=== PATIENT | male | born 1960 | race Caucasian/White ===

== ENCOUNTER 2021-04-06 12:23 | Emergency (ER) | payer BC, OTHER, SELFPAY ==
[2021-04-06 12:34] VITALS: BP 159/98; PULSE 73; RESP 16; TEMP 37.2; O2SAT 98
--- NOTE | 2021-04-06 13:56 | ED.EPISTAXIS ---
HPI - Epistaxis General Chief complaint: Epistaxis Stated complaint: blood nose Time Seen by Provider: 04/06/21 13:33 Source: patient and RN notes reviewed Mode of arrival: ambulatory Limitations: no limitations History of Present Illness HPI Narrative: Patient presents today complaining of left-sided epistaxis since 11:00 this morning. He does take an aspirin daily but is on no other blood thinners. He did have a headache this morning and took an Excedrin as well. States he does get nosebleeds frequently in the winter, but they typically stop on their own. MD complaint: epistaxis Related Data Home Medications Medication Instructions Recorded Confirmed amlodipine 10 mg PO DAILY 04/06/21 04/06/21 ascorbic acid (vitamin C) 250 mg PO BID 04/06/21 04/06/21 aspirin [Adult Low Dose Aspirin] 81 mg PO DAILY 04/06/21 04/06/21 atorvastatin 20 mg PO DAILY 04/06/21 04/06/21 cyanocobalamin (vitamin B-12) 5,000 mcg SUBLINGUAL DAILY 04/06/21 04/06/21 [Vitamin B-12] gemfibrozil 600 mg PO BID 04/06/21 04/06/21 hydralazine 100 mg PO DAILY 04/06/21 04/06/21 omega-3 fatty acids-vitamin E 1 cap PO BID 04/06/21 04/06/21 [Fish Oil] Allergies Allergy/AdvReac Type Severity Reaction Status Date / Time No Known Allergies Allergy Verified 04/06/21 12:48 Review of Systems Review of Systems: CONSTITUTIONAL: Denies body aches, fever, chills, or sweats. EYES: Denies visual changes, redness, or discharge. ENT: Denies rhinorrhea, congestion, sore throat, or otalgia.+ Epistaxis CARDIOVASCULAR: Denies chest pain, palpitations, or edema. RESPIRATORY: Denies cough or dyspnea. GASTROINTESTINAL: Denies abdominal pain, nausea, vomiting, or diarrhea. GENITOURINARY: Denies dysuria or hematuria. SKIN: Denies rash, itching, or wounds. MUSCULOSKELETAL: Denies back pain, joint pain, or myalgia. NEUROLOGIC: Denies headache, numbness, tingling, or weakness. PSYCH: Denies depression or anxiety. [facility] Past Medical History Medical History (Updated 04/07/21 @ 08:19 by Tangela Ingram, LEAD SOFTWARE ENGINE[employer], ) Hypertension Comments At time of signature, I have reviewed and agree with nursing past medical, surgical, social and family history unless otherwise noted. Please see nursing chart for further information. There is no relevant family history pertinent to the presenting complaint Exam Narrative: GENERAL: Well-appearing, well-nourished, and in no acute distress. HEAD: Normocephalic, atraumatic. EYES: EOMI. No redness or drainage. Conjunctivae normal. ENT: Mucous membranes pink and moist. Nares clear. No rhinorrhea. Throat normal. Uvula midline. Left-sided epistaxis that is steady. No anterior source identified. Patient has a large clot in the throat that he was able to cough up. Nasal clamp for ~1 hour has not helped achieve hemostasis prior to exam. NECK: Normal AROM. CHEST: No respiratory distress. EXTREMITIES: Normal range of motion. No edema. SKIN: Warm, dry, no rash. Capillary refill normal. Normal skin turgor. NEURO: No focal deficits. Alert and oriented x3. Gait steady. PSYCH: Normal affect. No signs of depression or anxiety. Course Vital Signs Vital signs: Vital Signs Temperature 99 F 04/06/21 12:34 Pulse Rate 73 04/06/21 12:34 Respiratory Rate 16 04/06/21 12:34 Blood Pressure 159/98 H 04/06/21 12:34 Pulse Oximetry 98 04/06/21 12:34 Temperature 99 F 04/06/21 12:34 Pulse Rate 73 04/06/21 12:34 Respiratory Rate 16 04/06/21 12:34 Blood Pressure 159/98 H 04/06/21 12:34 Pulse Oximetry 98 04/06/21 12:34 Reviewed. Pt has been instructed to follow up with his PCP regarding his elevated blood pressure today. Procedures Epistaxis Control left: Epistaxis Control Date: 04/06/21 Epistaxis Control Time: 13:57 Time Out Performed: No Clots Removed by: blowing nose (coughing) Cautery Used: none Device Inserted: hemostatic balloon (Rapid rhino) Patient Tolerated
== END 2021-04-06 14:35 | disposition home or self-care (01) ==
PROVIDERS: Emergency Provider Nurse Practitioner; PCP Internal Medicine
DX: R04.0 Epistaxis (principal)
CPT/HCPCS: 30905; 99213; G0463

== ENCOUNTER 2021-04-08 08:15 | Emergency (ER) | payer BC, OTHER, SELFPAY ==
[2021-04-08 08:20] VITALS: BP 140/92; PULSE 66; RESP 20; TEMP 36.7; O2SAT 100
--- NOTE | 2021-04-08 08:38 | ED.GENADULT ---
HPI - General Adult General Chief complaint: Unspecified Stated complaint: Nose balloon removal. Time Seen by Provider: 04/08/21 08:37 Source: patient and RN notes reviewed Mode of arrival: ambulatory Limitations: no limitations History of Present Illness HPI narrative: 60-year-old male presents for removal of a rapid Rhino that he had placed here on Thursday. Reports on Thursday he had a nosebleed in the left nostril, held pressure for 1 hour and it was not stopping. Reports he presented and had a rapid Rhino placed and was placed on antibiotics. He denies any problems or concerns, denies any bleeding after the rapid Rhino was placed. MD complaint: Rapid Rhino removal Related Data Home Medications Medication Instructions Recorded Confirmed amlodipine 10 mg PO DAILY 04/06/21 04/06/21 ascorbic acid (vitamin C) 250 mg PO BID 04/06/21 04/06/21 aspirin [Adult Low Dose Aspirin] 81 mg PO DAILY 04/06/21 04/06/21 atorvastatin 20 mg PO DAILY 04/06/21 04/06/21 cyanocobalamin (vitamin B-12) 5,000 mcg SUBLINGUAL DAILY 04/06/21 04/06/21 [Vitamin B-12] gemfibrozil 600 mg PO BID 04/06/21 04/06/21 hydralazine 100 mg PO DAILY 04/06/21 04/06/21 omega-3 fatty acids-vitamin E 1 cap PO BID 04/06/21 04/06/21 [Fish Oil] Allergies Allergy/AdvReac Type Severity Reaction Status Date / Time No Known Allergies Allergy Verified 04/06/21 12:48 Review of Systems Review of Systems: CONSTITUTIONAL: Denies malaise, chills, sweats, or fever. ENT: Denies epistaxis NEUROLOGIC: Denies headache. All systems reviewed & are unremarkable except as noted in HPI and below PMFSH Past Medical History Medical History (Updated 04/08/21 @ 08:46 by Palmira Ramirez NP) Hypertension Comments At time of signature, agree with nursing past medical, surgical, social and family history. There is no relevant family history pertinent to the presenting complaint Exam Narrative: GENERAL: Well-appearing, well-nourished, and in no acute distress. HEAD: Normocephalic, atraumatic. EYES: PERRLA, sclera clear ENT: Right nares clear, rapid Rhino intact in the left nostril, no epistaxis noted. Mucous membranes moist. Oropharynx without erythema or lesions. No posterior bleeding noted NECK: Supple. CHEST: No respiratory distress. Speaks in full sentences. HEART: Regular rate and rhythm. SKIN: Warm, dry, no visible rash. NEURO: Alert and oriented x3. PSYCH: Normal mood and affect Course Course Emergency Course: Patient is aware of diagnosis, understands and agrees to treatment plan. Anticipatory guidance given. Patient agrees to follow-up as directed and is aware of reasons to seek care at the emergency department. Portions of this record may have been created with voice recognition software Vital Signs Vital signs: Vital Signs Temperature 98.0 F 04/08/21 08:20 Pulse Rate 66 04/08/21 08:20 Respiratory Rate 20 04/08/21 08:20 Blood Pressure 140/92 H 04/08/21 08:20 Pulse Oximetry 100 04/08/21 08:20 Temperature 98.0 F 04/08/21 08:20 Pulse Rate 66 04/08/21 08:20 Respiratory Rate 20 04/08/21 08:20 Blood Pressure 140/92 H 04/08/21 08:20 Pulse Oximetry 100 04/08/21 08:20 Reviewed. Patient has history of hypertension Procedures Other Procedure Procedure 1: Other Procedure: Left nostril rapid Rhino removal: 8 mL of air removed from cough, cuff completely deflated. Device gently removed without any immediate rebleeding. 1 spray of phenylephrine 1% placed in the left nostril. Patient tolerated well, no complications Medical Decision Making MDM Narrative Medical decision making narrative: Exam findings show no acute concerns or changes; patient is non-toxic appearing and is in no distress. Patient is appropriate for outpatient treatment and follow-up. Vital Signs Vital Signs: Vital Signs Temperature 98.0 F 04/08/21 08:20 Pulse Rate 66 04/08/21 08:20 Respiratory Rate 20 04/08/21 08:20 Blood Pressure 1
== END 2021-04-08 08:58 | disposition home or self-care (01) ==
PROVIDERS: Emergency Provider Nurse Practitioner; PCP Internal Medicine
DX: Z48.00 Encounter for change or removal of nonsurgical wound dressing (principal); I10 Essential (primary) hypertension; Z79.82 Long term (current) use of aspirin
CPT/HCPCS: 99212; 99213; A9270; G0463

== ENCOUNTER 2021-10-20 14:36 | Emergency (ER) | payer BC, OTHER, SELFPAY ==
[2021-10-20 14:45] VITALS: BP 155/87; PULSE 94; RESP 18; TEMP 37.1; O2SAT 98
--- NOTE | 2021-10-20 14:48 | ED.GENADULT ---
HPI - General Adult General Chief complaint: Allergic Reaction Stated complaint: tongue swelling Time Seen by Provider: 10/20/21 14:48 Source: patient, family, RN notes reviewed and old records reviewed Mode of arrival: ambulatory Limitations: no limitations History of Present Illness HPI narrative: 60 year old male accompanied by presents to express care with complaints of his tongue starting to swell after taking some Aleve. Patient reports that tongue started swelling within a few (5) minutes after taking medication, which occurred about 15 minutes prior to arrival. Patient took Benadryl tabs 2 orally prior to arrival. Patient 's tongue is enlarged, no Damien angina noted, respirations even and nonlabored with SO2 98% on room air, he also states that he feels itchy all over. Patient denies any new medications, foods, soap, detergents or new exposure to any chemicals. Patient reports that he has taken Aleve before with no problems. MD complaint: tongue swelling, allergic reaction Onset (ago): minute(s) (1430) Treatments prior to arrival: other (Benadryl tabs 2) Related Data Home Medications Medication Instructions Recorded Confirmed amlodipine 10 mg tablet 10 mg PO DAILY 04/06/21 10/20/21 ascorbic acid (vitamin C) 500 mg 250 mg PO BID 04/06/21 10/20/21 tablet atorvastatin 20 mg tablet 20 mg PO DAILY 04/06/21 10/20/21 gemfibrozil 600 mg tablet 600 mg PO BID 04/06/21 10/20/21 hydralazine 100 mg tablet 100 mg PO TID 04/06/21 10/20/21 aspirin 81 mg tablet,delayed 81 mg PO DAILY 10/20/21 10/20/21 release (Adult Low Dose Aspirin) hydrochlorothiazide 12.5 mg tablet 1 tablet PO DAILY 10/20/21 10/20/21 Allergies Allergy/AdvReac Type Severity Reaction Status Date / Time No Known Allergies Allergy Verified 10/20/21 15:02 Review of Systems Review of Systems: CONSTITUTIONAL: Denies fever, chills, or sweats. EYES: Denies visual changes, redness, or discharge. ENT: Denies rhinorrhea, congestion, sore throat, or otalgia.positive for tongue swelling and itching CARDIOVASCULAR: Denies chest pain, palpitations, or edema. RESPIRATORY: Denies cough or acute dyspnea. GASTROINTESTINAL: Denies abdominal pain, nausea, vomiting, or diarrhea. GENITOURINARY: Denies dysuria or hematuria. SKIN: Denies rash but positive for itching all over. MUSCULOSKELETAL: Denies back pain, joint pain, or myalgia. NEUROLOGIC: Denies headache, numbness, or weakness. PSYCHIATRIC: Denies anxiety or depression. PMFSH Past Medical History Medical History (Updated 10/21/21 @ 15:48 by Saundra Rubi NP) Hypertension Hypertension Kidney stones Serum cholesterol elevated Surgical History Surgical History (Updated 10/21/21 @ 15:48 by Saundra Rubi NP) H/O inguinal hernia repair Social History Social History (Updated 10/21/21 @ 15:48 by Saundra Rubi NP) Smoking status: Never smoker Alcohol intake: current Alcohol use details: social Substance use type: does not use Living arrangements: with family Gender identity (if verbalized by the patient): Male Comments At time of signature, agree with nursing past medical, surgical, social and family history. There is no relevant family history pertinent to the presenting complaint Exam Narrative: GENERAL: Well-appearing, well-nourished, and in acute distress related to tongue swelling HEAD: Normocephalic, atraumatic. EYES: PERRLA and EOMI. ENT: Nares clear, no rhinorrhea or epistaxis. Mucous membranes moist.TM's normal with good light reflex, throat pink no lesions or exudates or tonsil swelling, tongue swollen 2 times normal size, denies any acute respiratory distress, no Damien angina. NECK: Supple.no lymphadenopathy CHEST: Clear to auscultation. No respiratory distress.SAO2 98% HEART: Regular rate and rhythm. No murmur heard. Normal peripheral pulses. ABDOMEN: Soft, nontender, nondistended, normal active bowel sounds. EXTREMITIES: Normal range of motion. No edema. SKIN: Warm
[2021-10-20] MEDS: methylPREDNISolone SOD SUCC 125 MG VIAL IM (14:53)
[2021-10-20] MEDS: diphenhydrAMINE HCl INJ 50 MG/ML VIAL IM (15:07)
[2021-10-20] MEDS: FAMOTIDINE 20 MG TABLET PO (16:25)
[2021-10-20] MEDS: predniSONE 20 MG TABLET 60 MG PO (17:00)
== END 2021-10-20 17:20 | disposition home or self-care (01) ==
PROVIDERS: Emergency Provider Registered Nurse; PCP Internal Medicine
DX: R22.0 Localized swelling, mass and lump, head (principal); T39.315A Adverse effect of propionic acid derivatives, initial encounter; I10 Essential (primary) hypertension
CPT/HCPCS: 96372; 99214; A9270; G0463; J1200; J2930; J7512

== ENCOUNTER 2023-02-03 16:03 | Emergency (ER) | payer BC, SELFPAY ==
--- NOTE | ~2023-02-03 | XR_ITS ---
EXAMINATION: XR chest 2V Exam Date/Time: 02/03/2023 17:00 CDT HISTORY: Fever since thursday. Comparison: None. RESULT: Lines, tubes, and devices: None. Lungs and pleura: Clear. Cardiomediastinal silhouette: Unremarkable. Other: No acute osseous or upper abdominal finding. IMPRESSION: No acute cardiopulmonary process. Reviewed, dictated and finalized at location K.
[2023-02-03 16:15] VITALS: BP 139/85; PULSE 101; RESP 24; TEMP 38.3; O2SAT 99
[2023-02-03 16:36] VITALS: BP 139/85; PULSE 101; RESP 24; TEMP 38.3; O2SAT 99
[2023-02-03 16:56] LABS: Glucose Point of Care 143 mg/dl (65-105)
[2023-02-03 16:57] VITALS: TEMP 38.3
[2023-02-03] MEDS: IBUPROFEN 400 MG TABLET 800 MG PO (16:57)
--- NOTE | 2023-02-03 16:59 | ED.FEVER ---
HPI - Fever General Chief Complaint: Fever Stated Complaint: Fever Source: patient Mode of arrival: ambulatory Limitations: no limitations History of Present Illness HPI Narrative: Patient presents for evaluation of fever for the last 48 hours. He indicates that he has had a throbbing occipital headache rated 6/10 severity. The day of symptom onset he also had some low back pain. He went to [facility] emergency room early yesterday morning and had negative flu and COVID tests. It sounds like he had some blood in his urine so had CT abd pelvis to rule out kidney stone. That study was negative per his reports. He has continued to have fevers, as high as 104.1, with reading of 101.1 today. Headache persists but back pain has improved. He took excedrin about 1.5 hrs ago. He denies any nausea, vomiting, diarrhea, cough, or SOB. He denies any recent sick exposures. No recent travel. No recent exposure to ticks. No know bloodborne pathogen exposures. He contacted his PCP who advised he come to urgent care. Related Data Home Medications Medication Instructions Recorded Confirmed amlodipine 10 mg tablet 10 mg PO DAILY 04/06/21 02/03/23 atorvastatin 20 mg tablet 20 mg PO DAILY 04/06/21 02/03/23 gemfibrozil 600 mg tablet 600 mg PO BID 04/06/21 02/03/23 hydralazine 100 mg tablet 100 mg PO TID 04/06/21 02/03/23 aspirin 81 mg tablet,delayed 81 mg PO DAILY 10/20/21 02/03/23 release (Adult Low Dose Aspirin) hydrochlorothiazide 12.5 mg tablet 1 tablet PO DAILY 10/20/21 02/03/23 azelastine 137 mcg (0.1 %) nasal 137 mcg intranasal Q12H 02/03/23 02/03/23 spray aerosol famotidine 40 mg tablet 40 mg PO DAILY 02/03/23 02/03/23 Allergies Allergy/AdvReac Type Severity Reaction Status Date / Time No Known Allergies Allergy Verified 02/03/23 16:33 Review of Systems Review of Systems: CONSTITUTIONAL: Reports fever. Denies chills, or sweats. EYES: Denies visual changes, redness, or discharge. ENT: Denies rhinorrhea, congestion, sore throat, or otalgia. CARDIOVASCULAR: Denies chest pain, palpitations, or edema. RESPIRATORY: Denies cough or dyspnea. GASTROINTESTINAL: Denies abdominal pain, nausea, vomiting, or diarrhea. GENITOURINARY: Denies dysuria or hematuria. SKIN: Denies rash or itching. MUSCULOSKELETAL: Reports recent low back pain, none currently. Denies joint pain, or myalgia. NEUROLOGIC:Reports headache. Denies numbness, dizziness, or weakness. PSYCHIATRIC: Denies anxiety or depression. [facility] Past Medical History Medical History Hypertension Hypertension Kidney stones Serum cholesterol elevated Surgical History Surgical History H/O inguinal hernia repair Family History Family History Mother Family history non-contributory Social History Social History Smoking status: Never smoker Alcohol intake: current Alcohol use details: social Substance use type: does not use Living arrangements: with family Gender identity (if verbalized by the patient): Male Sexual Orientation (if Verbalized by the Patient): Straight or Heterosexual Spiritual care concerns: No Exam Narrative: GENERAL: Well-appearing, well-nourished, and in no acute distress. HEAD: Normocephalic, atraumatic. EYES: PERRLA and EOMI. ENT: Nares clear, no rhinorrhea or epistaxis. Mucous membranes moist. Oropharynx without tonsillar hypertrophy exudate or other lesions. Bilateral TMs pearly shen nonbulging NECK: Supple. No adenopathy or masses. No carotid bruits or JVD CHEST: Clear to auscultation. No respiratory distress. No wheezes rales or rhonchi HEART: Regular rate and rhythm. No murmur heard. Normal peripheral pulses. ABDOMEN: Soft, nontender, nondistended, normal active bowel soun
[2023-02-03 17:27] VITALS: TEMP 37.5
[2023-02-03 17:45] VITALS: TEMP 37.5
== END 2023-02-03 17:45 | disposition home or self-care (01) ==
PROVIDERS: Emergency Provider Nurse Practitioner; PCP Internal Medicine
DX: R50.9 Fever, unspecified (principal); Z20.822 Contact with and (suspected) exposure to COVID-19; I10 Essential (primary) hypertension; E78.00 Pure hypercholesterolemia, unspecified; Z79.82 Long term (current) use of aspirin
CPT/HCPCS: 36416; 71046; 81003; 82948; 86308; 87081; 87426; 87804; 87880; 99213; A9270; C9803; G0463

== ENCOUNTER 2023-12-06 08:02 | Emergency (ER) | payer BC, SELFPAY ==
[2023-12-06 08:06] VITALS: BP 146/66; PULSE 98; RESP 20; TEMP 36.9; O2SAT 100
[2023-12-06 08:11] VITALS: BP 146/66; PULSE 98; RESP 20; TEMP 36.9; O2SAT 100
--- NOTE | 2023-12-06 08:12 | ED.URI ---
HPI - URI/Sore Throat General Chief Complaint: Upper Respiratory Infection Stated Complaint: tested positive COVID at home History of Present Illness HPI Narrative: Patient presents with upper respiratory symptoms. No shortness of breath no chest pain. Patient states he went on a cruise and his symptoms started December 02 and he did a home COVID test yesterday which was positive for COVID-19. Patient states he has been taking NyQuil for symptoms but he did run out is not taking anything else [id number]. Related Data Home Medications Medication Instructions Recorded Confirmed amlodipine 10 mg tablet 10 mg PO DAILY 04/06/21 02/03/23 atorvastatin 20 mg tablet 20 mg PO DAILY 04/06/21 02/03/23 gemfibrozil 600 mg tablet 600 mg PO BID 04/06/21 02/03/23 hydralazine 100 mg tablet 100 mg PO TID 04/06/21 02/03/23 aspirin 81 mg tablet,delayed 81 mg PO DAILY 10/20/21 02/03/23 release (Adult Low Dose Aspirin) hydrochlorothiazide 12.5 mg tablet 1 tablet PO DAILY 10/20/21 02/03/23 azelastine 137 mcg (0.1 %) nasal 137 mcg intranasal Q12H 02/03/23 02/03/23 spray famotidine 40 mg tablet 40 mg PO DAILY 02/03/23 02/03/23 Allergies Allergy/AdvReac Type Severity Reaction Status Date / Time No Known Allergies Allergy Verified 02/03/23 16:33 Review of Systems Review of Systems: CONSTITUTIONAL: Denies chills, or sweats. Reports fever and generalized body aches EYES: Denies visual changes, redness, or discharge. ENT: Denies otalgia. Reports nasal congestion runny nose and sore throat CARDIOVASCULAR: Denies chest pain, palpitations, or edema. RESPIRATORY: Denies dyspnea. Reports occasional cough GASTROINTESTINAL: Denies abdominal pain, nausea, vomiting, or diarrhea. GENITOURINARY: Denies dysuria or hematuria. SKIN: Denies rash or itching. MUSCULOSKELETAL: Denies back pain, joint pain, or myalgia. Reports generalized body aches NEUROLOGIC: Denies headache, numbness, or weakness. PSYCHIATRIC: Denies anxiety or depression. [facility] Past Medical History Medical History Hypertension Hypertension Kidney stones Serum cholesterol elevated Surgical History Surgical History H/O inguinal hernia repair Family History Family History Mother Family history non-contributory Social History Social History Smoking status: Never smoker Alcohol intake: current Alcohol use details: social Substance use type: does not use Living arrangements: with family Gender identity (if verbalized by the patient): Male Sexual Orientation (if Verbalized by the Patient): Straight or Heterosexual Spiritual care concerns: No Comments At time of signature, agree with nursing past medical, surgical, social and family history. There is no relevant family history pertinent to the presenting complaint Exam Narrative: The patient is a well-developed, well-nourished in no acute distress. SKIN: Skin is warm and dry without erythema, swelling or exudate. There is good turgor. No tenting. HEAD: Atraumatic. Normocephalic. No temporal or scalp tenderness. EYES: Moist and bright. Sclera and conjunctivae normal. No discharge. PERRLA. Extraocular motions intact. Gross visual acuity intact. EARS: Pinna is normal shape and contour. Clear external auditory canals. TM pearly riley with good cone of light, no erythema or suppuration. Bilateral cerumen noted no gross hearing deficit. NOSE: pink, moist mucosa with good air movement. Clear rhinorrhea without nasal flaring. Septum midline. Mouth: moist mucous membranes. THROAT; mild erythema noted to posterior oropharynx with moderate postnasal drainage. Without exudate or ulceration.. Uvula midline. Normal movement of soft palate. NECK: Supple and nontender
== END 2023-12-06 08:22 | disposition home or self-care (01) ==
PROVIDERS: Emergency Provider Nurse Practitioner Family; PCP Internal Medicine
DX: U07.1 COVID-19 (principal); I10 Essential (primary) hypertension; E78.00 Pure hypercholesterolemia, unspecified; Z79.82 Long term (current) use of aspirin
CPT/HCPCS: 99211; G0463